=== PATIENT | male | born 1990 | race Caucasian/White ===

== ENCOUNTER 2021-12-20 13:39 | Outpatient (REF) | payer BC, SELFPAY ==
[2021-12-23 13:22] LABS: Lyme Abs Screen <0.90 index
== END 2021-12-20 13:40 | disposition home or self-care (01) ==
LOC: HO.MANLDS 13:39
PROVIDERS: Visit Provider Physician Assistant
DX: A69.20 Lyme disease, unspecified (principal)
CPT/HCPCS: 36415; 86617; 86618

== ENCOUNTER 2022-12-05 11:23 | Outpatient (REF) | payer BC, SELFPAY ==
[2022-12-19 14:28] LABS: Babesia IgG <1:64 titer (<1:64)
== END 2022-12-05 11:24 | disposition home or self-care (01) ==
LOC: HO.MANLDS 11:23
PROVIDERS: Visit Provider Physician Assistant
DX: T14.8XXA Other injury of unspecified body region, initial encounter (principal); W57.XXXA Bitten or stung by nonvenomous insect and other nonvenomous arthropods, initial encounter
CPT/HCPCS: 36415; 86753